=== PATIENT | male | born 1950 | race Caucasian/White ===

== ENCOUNTER 2016-06-03 08:10 | Day surgery (SDC) | payer MEDICARE ==
[2016-05-29 09:16] VITALS: BMI 30.1
[2016-06-03] MEDS ORDERED: Propofol 10 mg/ml Inj (20 ML) ONE (11:02)
[2016-06-03] MEDS ORDERED: Sodium Chloride 0.9% 500 ML IV ONE ×2 (11:05)
[2016-06-03 12:16] VITALS: TEMP 97.7
[2016-06-03 12:17] VITALS: O2SAT 99
[2016-06-03 12:20] VITALS: RESP 12
[2016-06-03 12:22] VITALS: BP 170/76; PULSE 65
== END 2016-06-03 12:20 | disposition home or self-care (01) ==
LOC: C.ENDO 08:10
PROVIDERS: ATTEND Internal Medicine Gastroenterology
DX: D12.3 Benign neoplasm of transverse colon (principal); K64.8 Other hemorrhoids
CPT/HCPCS: 45388; 82948; 88305; J2704; J7040

== ENCOUNTER 2017-01-20 08:43 | Day surgery (SDC) | payer MEDICARE ==
[2017-01-02 23:13] VITALS: BMI 30.1
[2017-01-20] MEDS ORDERED: Midazolam 2 MG/2 ML VIAL ONE (11:14)
[2017-01-20] MEDS ORDERED: Propofol 10 mg/ml Inj (20 ML) ONE (11:14)
[2017-01-20] MEDS ORDERED: Lactated Ringer's 500 ML IV SCH (11:15)
[2017-01-20 12:18] VITALS: TEMP 97.1
[2017-01-20 12:23] VITALS: O2SAT 99
[2017-01-20 14:03] VITALS: BP 158/72; PULSE 60; RESP 18
== END 2017-01-20 13:00 | disposition home or self-care (01) ==
LOC: C.ENDO 08:43
PROVIDERS: ATTEND Internal Medicine Gastroenterology
DX: K21.0 Gastro-esophageal reflux disease with esophagitis (principal); K29.70 Gastritis, unspecified, without bleeding
CPT/HCPCS: 43239; 82948; 88305; 88312; 88342; J2250; J2704; J7120